=== PATIENT | male | born 1980 | race Caucasian/White ===

== ENCOUNTER 2017-10-17 12:54 | Day surgery (SDC) | payer OTHER ==
[2017-10-17] MEDS ORDERED: NS 1,000 ML IV (13:00)
[2017-10-17] MEDS ORDERED: PROPOFOL 200 MG/20 ML VIAL As Ordered ×3 (13:38→13:45)
== END 2017-10-17 14:37 | disposition home or self-care (01) ==
LOC: M OPP 12:54
DX: K22.70 Barrett's esophagus without dysplasia (principal); K31.7 Polyp of stomach and duodenum; K44.9 Diaphragmatic hernia without obstruction or gangrene; G47.30 Sleep apnea, unspecified; K21.9 Gastro-esophageal reflux disease without esophagitis; F32.9 Major depressive disorder, single episode, unspecified; F41.9 Anxiety disorder, unspecified; Z79.899 Other long term (current) drug therapy; Z98.52 Vasectomy status; Z80.9 Family history of malignant neoplasm, unspecified
CPT/HCPCS: 43239

== ENCOUNTER 2018-03-31 21:11 | Emergency (ER) | payer OTHER ==
[2018-03-31] MEDS: AUGMENTIN 875 MG TAB PO (22:36)
== END 2018-03-31 23:17 | disposition home or self-care (01) ==
LOC: M ED 21:11
DX: S41.152A Open bite of left upper arm, initial encounter (principal); S61.452A Open bite of left hand, initial encounter; S61.259A Open bite of unspecified finger without damage to nail, initial encounter; W54.0XXA Bitten by dog, initial encounter; Y92.009 Unspecified place in unspecified non-institutional (private) residence as the place of occurrence of the external cause; F33.9 Major depressive disorder, recurrent, unspecified; F41.9 Anxiety disorder, unspecified; F43.10 Post-traumatic stress disorder, unspecified; Z79.899 Other long term (current) drug therapy
CPT/HCPCS: 99284

== ENCOUNTER 2019-12-22 17:09 | Emergency (ER) | payer OTHER ==
[~2019-12-22] VITALS: Ht 182.9 cm; Wt 100.0 kg
[~2019-12-22 17:09] MED LIST: AUGM875T28 PO; CLON-412 PO; EFFE37.5 PO; EFFE75CA2 PO; OMEP40CA97 PO; QUET50TA3 PO
[2019-12-22] MEDS ORDERED: HYDR-4570 (17:30)
[2019-12-22] MEDS ORDERED: INDO-16 PO (18:22)
[2019-12-22 18:31] VITALS: BP 162/105
--- NOTE | 2019-12-23 01:29 | REP ---
LEFT HAND, FOUR VIEWS: There is no evidence of an acute fracture, dislocation, or intrinsic bone disease. IMPRESSION: No fracture or dislocation. Electronically Signed by Tyler Burton MD 12/23/2019 09:51 A
== END 2019-12-22 18:32 | disposition home or self-care (01) ==
LOC: M ED 17:09
DX: M25.542 Pain in joints of left hand (principal); F17.200 Nicotine dependence, unspecified, uncomplicated